=== PATIENT | male | born 1945 | race Caucasian/White ===

== ENCOUNTER → 2018-12-23 | Outpatient (CLI) | payer MEDICARE ==
--- NOTE | 2018-12-23 12:56 | RAD ---
EXAM DESCRIPTION: Ankle,Right 3 Views CLINICAL HISTORY: 73 years Male, PAIN IN RIGHT ANKLE AND JOINTS OF RIGHT FOOT COMPARISON: None available. TECHNIQUE: AP, oblique and lateral radiographs. FINDINGS: The visualized bones appear well mineralized. No acute fracture or dislocation. The ankle mortise is intact. 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 There is a large accessory ossicle noted along the anterior aspect of the ankle joint. 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 Plantar calcaneal spur. Diffuse soft tissue swelling of the ankle is present. 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 Large accessory ossicle is noted along the anterior aspect of the ankle joint. 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 Electronically signed by: Miley Barrett MD 12/23/2018 12:53 PM [facility]
== END ==
LOC: RAD 08:02
PROVIDERS: ATTEND Orthopaedic Surgery
DX: M25.571 Pain in right ankle and joints of right foot (principal); M19.071 Primary osteoarthritis, right ankle and foot